=== PATIENT | female | born 1950 ===

== ENCOUNTER 2016-12-02 01:32 | Emergency (ER) | payer OTHER ==
[2016-12-02] MEDS ORDERED: ACETAMINOPHEN 500 MG TABLET ONE (02:00)
[2016-12-02] MEDS ORDERED: AMOX 875 MG/CLAV 125 MG 1 EACH TABLET ONE (02:00)
[2016-12-02] MEDS ORDERED: DIPHTH,PERTUSS(ACELL),TET VAC 0.5 ML VIAL IM V ONE (02:01)
[2016-12-02] MEDS ORDERED: OXYCODONE HCL 5 MG TABLET ONE (02:01)
--- NOTE | 2016-12-02 08:12 | RAD ---
HAND-LEFT 3 VIEWS COMPARISON: None. HISTORY: Dogbite. IMPRESSION: Views: Left hand PA, oblique, lateral. Bones: Normal Joints: Normal. Soft tissues: Laceration at the second webspace with subcutaneous air in the soft tissues near the second and third metacarpophalangeal joints. IMPRESSION: Soft tissue injury consistent with dog bite, with subcutaneous air in the soft tissues near the second and third metacarpophalangeal joints. Possible laceration at the second web space.
== END 2016-12-02 03:22 | disposition home or self-care (01) ==
LOC: ED 01:32
DX: S61.452A Open bite of left hand, initial encounter (principal); J44.9 Chronic obstructive pulmonary disease, unspecified; I10 Essential (primary) hypertension; M72.0 Palmar fascial fibromatosis [Dupuytren]; F17.210 Nicotine dependence, cigarettes, uncomplicated; W54.0XXA Bitten by dog, initial encounter; Y92.008 Other place in unspecified non-institutional (private) residence as the place of occurrence of the external cause; Y99.8 Other external cause status; Z23 Encounter for immunization; Z79.899 Other long term (current) drug therapy
CPT/HCPCS: 90715; 73130; 90471; 99283 ×2; 12004 ×2; A9270 ×3